=== PATIENT | female | born 1995 | race Caucasian/White ===

== ENCOUNTER 2024-06-23 09:09 | Outpatient (CLI) | payer OTHER, SELFPAY ==
--- NOTE | ~2024-06-23 | US_ITS ---
EXAMINATION: US OB /maternal detail DATE: 06/23/2024 09:45 INDICATION: Encounter for supervision of normal . TECHNIQUE: Real-time ultrasound of the pelvis was performed. COMPARISON: None. FINDINGS: There is a single living fetus in breech presentation. The placenta is anterior, 1.7 cm from the cer vix. heart rate is 154 beats per minute (bpm). The amniotic fluid volume is subjectively normal . The following biometric data were obtained: Biparietal diameter (BPD): 4.1 cm; head circumference (HC): 15.6 cm; abdominal circumference (AC): 12 .8 cm; femur length (FL): 2.7 cm. These measurements are concordant. Estimated weight is 231 g +/- 35 g, which correlates with the 53rd percentile when 11/23/24 is u sed as estimated date of delivery. As single measurements, these parameters are each equal to the following estimated gestational ages: BPD: 18 weeks 2 days. HC: 18 weeks 3 days. AC: 18 weeks 2 days. FL: 18 weeks 1 days. estimated gestational age based solely on measurements from this exam is 18 weeks 2 days +/- 1 weeks 2 days. The cerebral ventricles, cerebellum, cisterna magna, nuchal fold, lip, and spine are normal. The hear t is normal. The diaphragm, stomach, kidneys, and bladder are normal. There are two umbilical arterie s to yield a 3-vessel cord. The cord insertion is normal. IMPRESSION: 1. Single living fetus in vertex presentation. 2. Estimated weight is 231 g +/- 35 g, which correlates with the 53rd percentile when 11/23/24 is used as estimated date of delivery. 3. Normal anatomic survey. Reviewed, dictated and finalized at location A. 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 Single living fetus in vertex presentation. 2. Estimated weight is 231 g +/- 35 g, which correlates with the 53rd pe rcentile when 11/23/24 is used as estimated date of delivery. 3. Normal anatomic survey.
== END 2024-06-23 09:10 | disposition home or self-care (01) ==
PROVIDERS: PCP Student in an Organized Health Care Education/Training Program; Visit Provider Student in an Organized Health Care Education/Training Program
DX: Z34.82 Encounter for supervision of other normal pregnancy, second trimester (principal); Z3A.18 18 weeks gestation of pregnancy
CPT/HCPCS: 76805

== ENCOUNTER 2024-11-08 06:58 | Outpatient (RCR) | payer OTHER, SELFPAY ==
[2024-10-18 17:08] VITALS: BP 109/64; PULSE 100
[2024-10-20 10:01] VITALS: BP 103/69; PULSE 86
[2024-10-27 11:09] VITALS: BP 115/79; PULSE 103
[2024-11-03 11:00] VITALS: BP 128/74; PULSE 100
--- NOTE | ~2024-11-08 | US_ITS ---
EXAMINATION: US OB BPP wo non-stress DATE: 10/18/2024 17:45 CDT INDICATION: Follow-up TECHNIQUE: Real-time transabdominal obstetric ultrasound. FINDINGS: 2 para 2 There is a single intrauterine gestation in vertex presentation. The placenta is anterior without placenta previa. Amniotic fluid index measures 5.9 cm cardiac activity and movement is noted with a heart rate of 163 beats per minute. Biophysical profile: breathin of 2 movement: 2 of 2 tone: 2 of 2 Amniotic fluid pocket: 2 of 2 Total score: 2 of 8 IMPRESSION: 1. Single intrauterine gestation in vertex presentation. 2: Total biophysical profile score of 8 out of 8. Amniotic fluid index measures 5.9 cm, as detailed above. Reviewed, dictated and finalized at location A.
--- NOTE | ~2024-11-08 | US_ITS ---
EXAMINATION: US OB BPP wo non-stress DATE: 10/20/2024 10:51 INDICATION: Oligohydramnios. Assess biophysical profile and amniotic fluid index during third trimest er . TECHNIQUE: Real-time pelvic ultrasound was performed. The interpreting radiologist was not present fo r the study. COMPARISON: None. FINDINGS: There is a single living fetus in vertex presentation. The placenta is anterior. heart rate is 145 beats per minute (bpm). Normal amniotic fluid index of 8.9 cm (5th%-95%: 7.9-24.9 cm at 35 weeks estimated gestational age) Biophysical profile performed by the technologist: breathing (30 sec sustained breathing in 30 minutes): 2 out of 2 movement (3 gross body movements in 30 minutes): 2 out of 2 tone (one episode of jtyflli-jpxvbwivw-oxzdbxy limb movement): 2 out of 2 Amniotic fluid pocket (2 cm): 2 out of 2 Total score: 8 out of 8 IMPRESSION: 1. Single living fetus in vertex presentation with heart rate of 145 bpm. 2. Biophysical profile 8 out of 8. 3. Normal amniotic fluid index of 8.9 cm Reviewed, dictated and finalized at location A.
--- NOTE | ~2024-11-08 | US_ITS ---
EXAMINATION: US OB limited DATE: 10/27/2024 11:06 INDICATION: Decreased movement during third trimester . Assess amniotic fluid index. TECHNIQUE: Real-time ultrasound of the pelvis was performed. The interpreting radiologist was not pre sent for the study. COMPARISON: None. FINDINGS: There is a single living fetus in vertex presentation. The placenta is anterior. heart rate is 151 beats per minute (bpm). The amniotic fluid index is 11.9 cm, which is normal (5th%-95%: 7.7-24.9 cm at 36 weeks estimated gestational age). IMPRESSION: 1. Single living fetus in vertex presentation with heart rate of 151 bpm. 2. Normal amniotic fluid index of 11.9 cm. Reviewed, dictated and finalized at location A.
--- NOTE | ~2024-11-08 | US_ITS ---
EXAMINATION: US OB BPP wo non-stress DATE: 11/03/2024 11:47 INDICATION: Assess biophysical profile and amniotic fluid index during third trimester . TECHNIQUE: Real-time pelvic ultrasound was performed. The interpreting radiologist was not present fo r the study. COMPARISON: None. FINDINGS: There is a single living fetus in vertex presentation. The placenta is anterior. heart rate is 132 beats per minute (bpm). Normal amniotic fluid index of 15.4 cm (5th%-95%: 7.5-24.4 cm at 37 week s estimated gestational age). Biophysical profile performed by the technologist: breathing (30 sec sustained breathing in 30 minutes): 2 out of 2 movement (3 gross body movements in 30 minutes): 2 out of 2 tone (one episode of ncvceyl-rzqjoqudg-mmonaec limb movement): 2 out of 2 Amniotic fluid pocket (2 cm): 2 out of 2 Total score: 8 out of 8 IMPRESSION: 1. Single living fetus in vertex presentation with heart rate of 132 bpm. 2. Biophysical profile 8 out of 8. 3. Normal amniotic fluid index of 15.4 cm Reviewed, dictated and finalized at location B.
--- NOTE | ~2024-11-08 | US_ITS ---
EXAMINATION: US OB BPP wo non-stress DATE: 11/08/2024 8:02 CDT INDICATION: Evaluate amniotic fluid index. Decreased movements. TECHNIQUE: Real-time transabdominal obstetric ultrasound. FINDINGS: Ultrasound dated 11/03/2024 There is a single living fetus in vertex presentation. The placenta is anterior without placenta pre via. cardiac activity and movement is noted with a heart rate of 149 beats per minute. A mniotic fluid index is below normal limits measuring 7.3 cm (normal range 7.5-24.4 cm). Biophysical profile: breathin of 2 movement: 2 of 2 tone: 2 of 2 Amniotic flud pocket: 2 of 2 Total score: 8 of 8 IMPRESSION: 1. Single living intrauterine in vertex presentation. 2: Total biophysical profile score of 8/8. 3: Oligohydramnios. Reviewed, dictated and finalized at location A.
[2024-11-08 07:31] VITALS: BP 107/66; PULSE 107
[2024-11-08 09:27] LABS: OBXCEM ROM Plus Negative (Negative)
== END 2024-11-28 08:27 | disposition home or self-care (01) ==
LOC: ANHOBOP 06:58
PROVIDERS: Visit Provider Obstetrics & Gynecology
DX: O36.8130 Decreased fetal movements, third trimester, not applicable or unspecified (principal); Z3A.34 34 weeks gestation of pregnancy; O41.03X0 Oligohydramnios, third trimester, not applicable or unspecified; Z3A.35 35 weeks gestation of pregnancy; Z3A.36 36 weeks gestation of pregnancy; Z3A.37 37 weeks gestation of pregnancy
CPT/HCPCS: 59025; 76815; 76819; 84112

== ENCOUNTER 2024-11-13 09:28 | Inpatient (IN) | payer OTHER, SELFPAY ==
[2024-11-13] VITALS (139 sets, daily range): BP systolic 84–135; BP diastolic 55–87; PULSE 75–119; RESP 18–20; TEMP 36.4–36.7; O2SAT 96–100; BMI 33.2
--- OUTSIDE RECORDS SUMMARY | 2024-11-13 11:13 | XMS_ITS | Continuity of Care Document ---
Author Organization [facility] Address [address] [place] [address] [address] [place] [address] Phone Care Team Providers Care Cap Sewer Name Role Phone Dino Tyler Unavailable Unavailable Advance Directives Directive Yes / No Effective Date File Name No Information Encounters Encounter Description Practice Location Reason(s) For Visit Diagnoses Date Provider Providers Copied on Encounter [facility], [address] [place] [address] [address], [place], [place], [id number], [place] tel:[phone] [facility] No Information [id number] Nayeli Edward. [address] [facility] , [address], [place], [address], [place]. tel:[phone] Family History Family Member Type Diagnosis Age At Onset No Information Payers Payer name Insurance type Covered green party ID Authoriza tion(s) No Information Social History Type Description Quantity Date Captured Comments Sex Female Smoking Status No Information Chief Complaint And Reason For Visit No Information Reason For Referral Reason For Referral No Information History Of Present Illness Encounter Date Complaint History Of Prese nt Illness No Information Functional Status Date Functional Assessmen t No Information Instructions Date Instruction Additional Infor mation No Information Assessments Type Assessment Date No Information Patient Care Teams Name Effective Dates (start - stop) Status Members No Information
--- NOTE | 2024-11-13 12:38 | LDADM ---
This patient, Valery Cantu, was admitted to Labor/Delivery/Recovery 105 on 11/13/24 at 09:28. Plans for labor, pain management and were discussed with patient. Patient/family oriented to hospital policies and general routines including ID bracelet, bed and alarms, visiting hours, pain management, procedures, bathroom and other care routines, personal items, smoking policy, room service/diet and guest tray routines, infant security routines, and visiting hours. Patient/Family are encouraged to report perceived risks to care and to ask questions if they do not understand what they are told or what they should do. See OBIX for further documentation.
[2024-11-13 13:03] LABS: Basophils Absolute Auto 0.1 K/mm3 (0.0-0.1); Basophils Percent Auto 0.7 % (0.2-1.2); Eosinophils Absolute Auto 0.2 K/mm3 (0-0.3); Eosinophils Percent Auto 2.1 % (0-4.4); Hematocrit 34.6 % (37.0-47.0); Lymphocytes Absolute Auto 1.85 K/mm3 (0.9-3.2); Lymphocytes Percent Auto 17.6 % (18.3-44.2); Mean Corpuscular HGB Conc 31.8 g/dl (32-36); Mean Corpuscular Hemoglobin 25.9 pg (26-34); Mean Corpuscular Volume 81.6 fl (80-100); Mean Platelet Volume 12.6 fl (7.4-10.4); Monocytes Absolute Auto 0.7 K/mm3 (0.1-0.6); Monocytes Percent Auto 6.7 % (2.6-8.5); Neutrophils Absolute Auto 7.6 K/mm3 (1.3-6.7); Neutrophils Percent Auto 71.9 % (45.5-73.1); Platelet Count Result 191 k/mm3 (150-375); Red Blood Count 4.24 M/mm3 (4.2-5.4); Red Cell Distribution Width 16.6 % (11.5-14.5); White Blood Count 10.5 K/mm3 (4.5-10.0)
[2024-11-13 13:43] LABS: Syphilis IgG/IgM Antibody Negative (Negative)
[2024-11-13 13:56] LABS: HIV 1/2 Ab P24 Ag Result Negative (Negative)
--- NOTE | 2024-11-13 15:14 | WPDHPUPDATE1 ---
History and Physical Update Update Date/Time: 11/13/24 15:14 29 yo who presents at 38w5d with SROM at 0730. Medical history complicated by anxiety on no medications. History and Physical has been reviewed, including an updated exam of the patient. There are NO changes in the patient's condition. Risks, benefits, and alternatives have been discussed and questions answered. Patient agrees to proceed with procedure. A/P admit to L&D routine admission orders Rh+ GBS neg continuous EFM will augment with pitocin as needed
[2024-11-13] MEDS: LACTATED RINGERS 1,000 ML 125 ML IV CONT ×2 (15:26→20:26)
[2024-11-13] MEDS: OXYTOCIN 30 UNITS/NS 500 ML 30 UNITS/500 ML BAG IV CONT (15:30)
[2024-11-14] VITALS (240 sets, daily range): BP systolic 91–148; BP diastolic 44–105; PULSE 70–183; RESP 16; TEMP 36.2–38.2; O2SAT 72–100
[2024-11-14] MEDS: AMPICILLIN 2 GM/NS 100 ML 2 GM/100 ML BAG IVPB ×2 (01:30→19:45)
--- NOTE | 2024-11-14 04:00 | PM.OBPNLAB ---
Pain Control Date/time seen: 11/14/24 04:00 Pain control: epidural Pelvic Exam Dilation (cm): 4 Effacement (%): 70 station: -1 Contractions Monitor mode: External Contraction pattern: Regular Status status: Category l Assessment and Plan Assessment: induction ongoing Comments: AROM of forebag for clear fluid. IUPC placed.
[2024-11-14] MEDS: LACTATED RINGERS 1,000 ML 125 ML IV CONT ×3 (04:02→14:09)
[2024-11-14] MEDS: AMPICILLIN 1 GM/NS 50 ML 1 GM/50 ML BAG IVPB ×2 (05:20→09:02)
--- NOTE | 2024-11-14 07:54 | PM.OBPNLAB ---
Pain Control Date/time seen: 11/14/24 07:54 Pain control: epidural Pelvic Exam Dilation (cm): 7 Effacement (%): 90 station: 0 Amniotic membrane status: Ruptured Contractions Monitor mode: Internal Contraction frequency: 1 (-2) Contraction pattern: Regular Status status: Category l Assessment and Plan Pitocin rate (mU/min): 6 Assessment: active labor Plan: continuous present management
[2024-11-14] MEDS: ACETAMINOPHEN 500 MG TABLET 1000 MG PO (09:01)
[2024-11-14] MEDS: GENTAMICIN SULFATE INJ 425 MG in DEXTROSE 5% 100 ML 100 MG IVPB (09:42)
[2024-11-14] MEDS: LIDOCAINE 1% LOCAL INJ 20 ML VIAL (13:25)
[2024-11-14] MEDS: miSOPROStol 200 MCG TABLET 800 MCG (13:27)
[2024-11-14] MEDS: fentaNYL CITRATE INJ (*CRX) 100 MCG/2 ML VIAL IV PUSH (13:29)
[2024-11-14] MEDS: METHYLERGONOVINE MALEATE 0.2 MG/ML VIAL (13:30)
--- NOTE | 2024-11-14 13:55 | PM.OBPRVD ---
OB - Vaginal Delivery Note Procedure Delivery date: 11/14/24 Events: Oligohydramnios (h/o; would fluctuate) and Other (PPH-- immediate due to atony) Intrapartal Events: Chorioamnionitis Delivery augmentation: Pitocin Delivery monitor: External FHT and Internal Uterine Route of delivery: Episiotomy description: None Laceration Description: Perineal - 2nd Degree Delivery repair: vicryl Specimen: Yes (placenta) Quantitative Blood Loss (ml): 750 Anesthesia type: Epidural (10cc of 1% lidocaine) Disposition: Floor Complications: No immediate complications Baby Date of : 11/14/24 Time of : 13:15 Gestational Age by Date: 38 (.6) gender: Female Weight (pounds): 8 Weight (ounces): 7 presentation: vertex position: Left Occiput Anterior Placenta delivery description: Expressed Cord Vessel Description: 3 Vessels and Delayed Cord Clamping score one minute: 8 score five minutes: 9 Narrative: Valery progressed to complete dilation with strong desire to push. She pushed for approximately 1 hour with good maternal effort. She delivered the head over intact perineum. No nuchal cord was palpated. She easily delivered the infant's shoulders and body without complication. The was immediately placed skin to skin and had good cry after stimulation. Delayed cord clamping was performed. The umbilical cord was then doubly clamped and cut. Segment of cord was collected for cord gases. The remaining cord blood was collected for typing. With Pitocin running and gentle downward traction on the cord the placenta delivered without complication. She was examined and a a second-degree perineal laceration was identified. The perineal laceration was started using 2-0 Vicryl and brisk bleeding was then noted. Bimanual massage was performed and atony with clots were noted in the uterus which were easily removed. A continued doing bimanual massage while the nurse placed Cytotec 800 rectally. And her uterus was noted to be firm. I continued with the perineal laceration however her epidural anesthesia was not working well and therefore I requested 1% lidocaine. Once again brisk bleeding was noted and I began performing bimanual massage were atony was once again noted. She was given Methergine and the bleeding briefly stopped. But with cessation of bimanual massage the uterus once again became atonic with bleeding noted. Approximate EBL at this point was 500 cc and I then called for the Arlet device. The Arlet was placed at the fundus and the suction of 80 mmHg was attached. The vaginal balloon was then inflated with 120 cc of saline. The suction tubing was noted to be full of blood but very little was in the canister and no additional bleeding was noted.. I then finished repairing the second-degree perineal laceration with the 2-0 Vicryl and good approximation with minimal bleeding was noted. A Leger catheter was placed and the Arlet had good suction with minimal bleeding noted. Sponge, lap, instrument, and needle counts were correct at the end of the procedure. Mom and baby were left in the birthing suite in stable condition.
[2024-11-14] MEDS: OXYTOCIN 30 UNITS/NS 500 ML 30 UNITS/500 ML BAG 125 UNITS IV CONT (14:09)
[2024-11-14 15:12] LABS: Hematocrit 35.3 % (37.0-47.0); Mean Corpuscular HGB Conc 31.2 g/dl (32-36); Mean Corpuscular Hemoglobin 25.8 pg (26-34); Mean Corpuscular Volume 82.7 fl (80-100); Mean Platelet Volume 11.9 fl (7.4-10.4); Platelet Count Result 146 k/mm3 (150-375); Red Blood Count 4.27 M/mm3 (4.2-5.4); Red Cell Distribution Width 16.7 % (11.5-14.5); White Blood Count 16.6 K/mm3 (4.5-10.0)
[2024-11-14] MEDS: ceFAZolin 2 GM/D5W 50 ML 2 GM/50 ML BAG IVPB (15:13)
[2024-11-14] MEDS: ACETAMINOPHEN 325 MG TABLET 650 MG PO (15:19)
[2024-11-14] MEDS: WITCH HAZEL 40 PADS 1 PAD TOPICAL (15:21)
[2024-11-14] MEDS: BENZOCAINE 20% AER SPR (*SP) 56 GM CAN 1 SPRAY TOPICAL (15:22)
[2024-11-14] MEDS: ONDANSETRON INJ 4 MG/2 ML VIAL IV PUSH (16:05)
[2024-11-14] MEDS: HYDROcodone/acetaminophen (*CRX) 5-325 MG TABLET 1 TAB PO ×2 (17:51→21:44)
[2024-11-14] MEDS: METHYLERGONOVINE MALEATE 0.2 MG TABLET PO (19:53)
[2024-11-14] MEDS: IBUPROFEN 600 MG TABLET PO (19:58)
[2024-11-15] MEDS: AMPICILLIN 2 GM/NS 100 ML 2 GM/100 ML BAG IVPB ×3 (01:41→14:01)
[2024-11-15] MEDS: HYDROcodone/acetaminophen (*CRX) 5-325 MG TABLET 1 TAB PO ×4 (01:56→19:26)
[2024-11-15] MEDS: METHYLERGONOVINE MALEATE 0.2 MG TABLET PO (04:09)
[2024-11-15 04:15] VITALS: BP 95/62; PULSE 75; RESP 16; TEMP 36.2; O2SAT 98
[2024-11-15 05:59] LABS: Hematocrit 31.1 % (37.0-47.0); Hemoglobin 9.6 g/dL (12.0-15.0); Mean Corpuscular HGB Conc 30.9 g/dl (32-36); Mean Corpuscular Hemoglobin 25.9 pg (26-34); Mean Corpuscular Volume 83.8 fl (80-100); Platelet Count Result 119 k/mm3 (150-375); Red Blood Count 3.71 M/mm3 (4.2-5.4); White Blood Count 13.4 K/mm3 (4.5-10.0)
--- NOTE | 2024-11-15 07:08 | P.PNOB_ITS ---
OB - PN: Subj Subjective Date/time seen: 11/15/24 07:08 Narrative: PPD#1 Valery reports doing well today. 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 Her pain is controlled. She has tolerated regular diet and passed gas. She is breast feeding. The Arlet (and delgado) are still in place; balloon has been deflated and suction released. OB - PN: Obj Data Labs 11/15/24 05:36 Labs: Laboratory Results - last 24 hr 11/14/24 11/15/24 14:25 05:36 WBC 16.6 H 13.4 H RBC 4.27 3.71 L Hgb 11.0 L 9.6 L Hct 35.3 L 31.1 L MCV 82.7 83.8 MCH 25.8 L 25.9 L MCHC 31.2 L 30.9 L RDW 16.7 H 17.0 H Plt Count 146 L 119 L MPV 11.9 H 12.0 H OB - PN A/P Assessment and Plan (1) Normal vaginal delivery of first : Code(s): O80 - Encounter for full-term uncomplicated delivery Status: Acute Assessment and Plan: - PO pain meds - Regular diet - Ambulation and hydration encouraged - Continue putting baby to breast q2-3hr (2) Chorioamnionitis: Code(s): O41.1290 - Chorioamnionitis, unspecified trimester, not applicable or unspecified Status: Acute Assessment and Plan: - s/p gentamicin 5mg/kg q24 hr - continue amp 2g q6h x 4 doses (3) PPH ( hemorrhage): Code(s): O72.1 - Other immediate hemorrhage Status: Acute Assessment and Plan: - s/p miso/methergine/extra pit - PO methergine 0.2 continued q8h, will stop now - Arlet in place for ~16hrs; removed this AM at 0740 - bleeding minimal - ok to remove delgado Plan day: 1 Plan: routine care Time Spent With Patient Time: Total time spent is greater than 50% in coordination of care (as documented) at patient's floor/unit and/or counseling patient: Review of Systems 2 Constitutional: Constitutional: Denies chills, Denies fever(s) and Denies headache(s) Eyes: Eyes: Denies change in vision ENT: Denies dizziness and Denies headache(s) Cardiovascular: Cardiovascular: Denies chest pain, Denies palpitations and Denies dyspnea Respiratory: Respiratory: Denies cough and Denies dyspnea Gastrointestinal: Gastrointestinal: Denies nausea and Denies vomiting Neurologic: Denies dizziness and Denies headache(s) Endocrine: Endocrine: Denies palpitations Exam 2 Const: General: cooperative, healthy appearing, comfortable and no acute distress Orientation/consciousness: patient oriented x3 Resp: Effort & Inspection: normal respiratory effort Auscultation: clear to auscultation bilaterally Cardio: Rate: regular rate GI: Inspection: non-distended GI Palp: No abdominal tenderness and Yes Soft to palpation Auscultation: normal bowel sounds : Other: fundus firm minimal bleeding Arlet removed without issue Urinary Catheter: Urinary Catheter: patent and draining and urine clear Skin: General skin exam: normal color Neuro: General: patient oriented x3 Extrem: General: normal to inspection Psych: Appearance: grossly normal Affect: normal affect Attitude: c ooperative
[2024-11-15 07:55] VITALS: BP 93/55; PULSE 74; RESP 18; TEMP 36.9; O2SAT 98
[2024-11-15] MEDS: DOCUSATE SODIUM 100 MG CAPSULE PO (07:59)
[2024-11-15] MEDS: MULTIVIT/MIN/PREN/FOL AC/IRON TABLET 1 TAB PO (07:59)
[2024-11-15] MEDS: ACETAMINOPHEN 325 MG TABLET 650 MG PO ×3 (08:00→22:21)
[2024-11-15] MEDS: IBUPROFEN 600 MG TABLET PO ×3 (08:00→22:20)
[2024-11-15] MEDS: IRON SUCROSE COMPLEX 400 MG in SODIUM CHLORIDE 0.9% IV 250 ML 108 MG IVPB (08:59)
--- NOTE | 2024-11-15 11:30 | PC.NURSE ---
Met with patient regarding needs. She is currently in cross cradle hold on the left breast. She states that baby has been feeding for 45 minutes so far. Patient says the latch is painful but mostly just at the initial latch on and then the pain dissipates. She wonders if there is a position to hold baby in where her nose is not pushed into the breast. Educated patient that the chin should be on the breast throughout the feeding and the nose needs to be close to the breast but that if we adjust baby's body it will assist with extending baby's neck more. Offered to try football position so that mom can she the latch from the top of the breast and mom states that she tried football hold yesterday and did not like it. Dad suggested we try it again now that mom is more comfortable and she agreed. We switched baby to football on the right breast. Baby latched easily and mom states there is initial pain that goes away. Encouraged mom to adjust her pillows for support and to assist with baby's position at the breast. Dad is present and supportive. Patient is encouraged to call for assistance at any/all feedings. RN updated.
[2024-11-15 12:20] VITALS: BP 88/48; PULSE 71; RESP 16; TEMP 36.4; O2SAT 98
[2024-11-15 20:34] VITALS: BP 101/59; PULSE 74; RESP 14; TEMP 36.4; O2SAT 98
[2024-11-16] MEDS: HYDROcodone/acetaminophen (*CRX) 5-325 MG TABLET 1 TAB PO ×2 (03:12→07:46)
[2024-11-16 04:32] LABS: Hematocrit 28.7 % (37.0-47.0); Hemoglobin 8.9 g/dL (12.0-15.0); Mean Corpuscular Hemoglobin 25.6 pg (26-34); Mean Corpuscular Volume 82.5 fl (80-100); Mean Platelet Volume 12.2 fl (7.4-10.4); Platelet Count Result 170 k/mm3 (150-375); Red Blood Count 3.48 M/mm3 (4.2-5.4); Red Cell Distribution Width 17.1 % (11.5-14.5); White Blood Count 11.2 K/mm3 (4.5-10.0)
--- NOTE | 2024-11-16 07:12 | PM.OBDSVD ---
DS: Admitting Diagnosis Discharge Date 11/16/24 Admitting Diagnosis SROM DS: Discharge Diagnosis Discharge Diagnosis (1) Normal vaginal delivery of first : Code(s): O80 - Encounter for full-term uncomplicated delivery Status: Acute (2) Chorioamnionitis: Code(s): O41.1290 - Chorioamnionitis, unspecified trimester, not applicable or unspecified Status: Acute (3) PPH ( hemorrhage): Code(s): O72.1 - Other immediate hemorrhage Status: Acute OB - DS: Summary OB Procedures : NST and Ultrasound OB Procedures Intrapartum: Spontaneous Vag Delivery and Other (PPH; Arlet placement) OB Procedures: : Other (venofer ) Peripartum Data Delivery Method: Natural Vaginal Laceration Description: Perineal - 2nd Degree Episiotomy description: None complications: none [place] 1: Gender: Female Disposition of : home Status at Discharge Functional status at discharge: independent ambulation Overall status at discharge: patient is back to baseline Time Spent with Patient Time attestation: Total time spent providing and/or coordinating discharge services: Exam Const: General: cooperative, healthy appearing, comfortable and no acute distress Orientation/consciousness: patient oriented x3 Resp: Effort & Inspection: normal respiratory effort Auscultation: clear to auscultation bilaterally Cardio: Rate: regular rate GI: Inspection: non-distended GI Palp: No abdominal tenderness and Yes Soft to palpation Auscultation: normal bowel sounds : Other: fundus firm Skin: General skin exam: normal color Neuro: General: patient oriented x3 Extrem: General: normal to inspection Psych: Appearance: grossly normal Affect: normal affect Attitude: cooperative DS: Data Data Completed and Pending Pending studies at discharge: Pending at discharge 11/14/24 13:19 Surgical [PTH] Routine Labs on day of discharge: Labs from last 24 hours 11/16/24 03:19 WBC 11.2 H RBC 3.48 L Hgb 8.9 L Hct 28.7 L MCV 82.5 MCH 25.6 L MCHC 31.0 L RDW 17.1 H Plt Count 170 MPV 12.2 H Discharge Plan Discharge Attending physician on discharge: Reema Shook Discharging Clinician: Reema Shook Anticipated Discharge Date/Time: 11/16/24 11:00 Patient Disposition: Home Activity: may shower and pelvic rest Diet: regular Patient Instructions: Vaginal Delivery (DC) Patient Language: Irish Stand Alone Forms: General Discharge Information Follow-up/Referrals: Reema Shook MD [Physician] - 4 Weeks Discharge Medications: New ibuprofen 600 mg Tablet 600 mg PO Q6H PRN (Reason: Cramping) Qty: 40 0RF acetaminophen 500 mg tablet 1,000 mg PO TID Qty: 60 0RF docusate sodium [Colace] 100 mg capsule 100 mg PO BID Qty: 90 0RF Continued Classic 28 mg iron- 800 mcg tablet PO mecobalamin (vitamin B12) 1,000 mcg tablet,chewable 1,000 mcg PO DAILY Zyrtec 10 mg capsule 10 mg PO DAILY PRN (Reason: allergy symptoms) Discontinued pseudoephedrine HCl [Sudafed] 30 mg tablet 30 mg PO Q4-6H PRN (Reason: nasal congestion) Rx Instructions: DNExceed 4 doses/24h Date of admission: 11/13/24 09:28 Primary Care Provider: UNKNOWN,DOCTOR Admitting Provider: Reema Shook Attending physician on admission: Reema Shook Condition: Stable
[2024-11-16 07:45] VITALS: BP 102/65; PULSE 62; RESP 16; TEMP 36.7; O2SAT 100
[2024-11-16] MEDS: POLYSACCHARIDE IRON COMPLEX 150 MG CAPSULE PO (07:45)
[2024-11-16] MEDS: IBUPROFEN 600 MG TABLET PO (07:46)
[2024-11-16] MEDS: DOCUSATE SODIUM 100 MG CAPSULE PO (07:46)
[2024-11-16] MEDS: MULTIVIT/MIN/PREN/FOL AC/IRON TABLET 1 TAB PO (07:46)
[2024-11-16] MEDS: TETANUS,DIPHTHERIA,AC PERTUSSIS ADULT (0.5 ML) BOOSTRIX IM (07:58)
--- NOTE | 2024-11-16 10:02 | WPDANLDPN2 ---
Anes-Prog Note L&D Date/Time: 11/16/24 10:02 Neuro status: Neuro function grossly intact. Cardiovascular status: normal Respiratory status: normal Airway patency: baseline Mental status: baseline Post-Op hydration status: normal Vital Signs: Last Vital Signs Temp 36.7 C 11/16/24 07:45 Pulse 62 11/16/24 07:45 Resp 16 11/16/24 07:45 BP 102/65 11/16/24 07:45 Pulse Ox 100 11/16/24 07:45 O2 Del Method Room Air 11/16/24 07:50 Pain score (VAS): 0 I/O: Intake & Output 11/15/24 11/16/24 11/16/24 23:59 07:59 15:59 Intake Total 480 Balance 480 Post-procedural complaints: none Patient feedback: Patient satisfied with anesthetic care.
[2024-11-17 14:34] VITALS: BP 129/81; PULSE 81; RESP 18; TEMP 36.6; O2SAT 99
== END 2024-11-16 12:55 | disposition home or self-care (01) | DRG 768 ==
LOC: ANHLDR 11:12 → ANHOB2 11-14 18:53
PROVIDERS: Admitting Provider Student in an Organized Health Care Education/Training Program; Visit Provider Obstetrics & Gynecology
DX: O42.92 Full-term premature rupture of membranes, unspecified as to length of time between rupture and onset of labor (principal); Z37.0 Single live birth; O41.1230 Chorioamnionitis, third trimester, not applicable or unspecified; O75.2 Pyrexia during labor, not elsewhere classified; O41.03X0 Oligohydramnios, third trimester, not applicable or unspecified; O72.1 Other immediate postpartum hemorrhage; O70.1 Second degree perineal laceration during delivery; O71.89 Other specified obstetric trauma; O67.8 Other intrapartum hemorrhage; Z3A.38 38 weeks gestation of pregnancy
CPT/HCPCS: 36415; 85025; 85027; 86593; 86703; 86850; 86900; 86901; 88307; 90715; A9270; G0432; J0290; J0690; J1580; J1756; J2003; J2210; J2405; J2590; J2795; J3010; J7050; J7120

== ENCOUNTER 2025-03-09 20:29 | Emergency (ER) | payer OTHER, SELFPAY ==
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
[2025-03-09 20:50] VITALS: BP 115/78; PULSE 68; RESP 17; TEMP 37; O2SAT 99
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
[2025-03-09] MEDS: HYDROcodone/acetaminophen (*CRX) 7.5-325 MG TABLET 1 TAB PO (23:00)
[2025-03-09] MEDS: LIDOCAINE 1% LOCAL INJ 10 ML VIAL INFILTRATE (23:21)
== END 2025-03-10 00:38 | disposition home or self-care (01) ==
PROVIDERS: Emergency Provider Emergency Medicine
DX: S62.336A Displaced fracture of neck of fifth metacarpal bone, right hand, initial encounter for closed fracture (principal); F90.9 Attention-deficit hyperactivity disorder, unspecified type; F32.A Depression, unspecified; Z79.3 Long term (current) use of hormonal contraceptives; Z79.899 Other long term (current) drug therapy; W22.8XXA Striking against or struck by other objects, initial encounter
CPT/HCPCS: 26605; 73120; 73130; 99285; A9270; J2003